=== PATIENT | female | born 1990 | race American Indian/Alaskan Native ===

== ENCOUNTER 2017-08-10 01:39 | Emergency (ER) | payer OTHER ==
[2017-08-10 03:11] LABS: HCG,QUALITATIVE URINE NEGATIVE (NEGATIVE)
[2017-08-10 03:13] LABS: SQUAMOUS EPITHIAL 5 /hpf (0-5); URINE BACTERIA OCC (<OCC); URINE BILIRUBIN NEGATIVE (NEGATIVE); URINE BLOOD NEGATIVE (NEGATIVE); URINE CLARITY Hazy (Clear); URINE COLOR Yellow (YELLOW); URINE GLUCOSE (UA) NORMAL (Normal); URINE LEUKOCYTE ESTERASE TRACE Leu/uL (Negative); URINE NITRATE POSITIVE (NEGATIVE); URINE PROTEIN NEGATIVE (NEGATIVE)
[2017-08-10 03:23] VITALS: BP 107/66; PULSE 61; RESP 18; TEMP 98.3; O2SAT 100
--- NOTE | 2017-08-10 03:27 | C.PDOC ---
History Of Present Illness 26 year old female presents to the ED c/o lower abdominal pain for a week. Patient states she has suprapubic pain, right middle finger pain and swelling. Patient states she has PMHx of UTIs and has not been following up with treatments for it. Patient denies fever, chills, nausea, vomit, diarrhea, back pain. Time Seen by Provider: 08/10/17 02:16 Chief Complaint (Nursing): Female Genitourinary History Per: Patient History/Exam Limitations: no limitations Onset/Duration Of Symptoms: Days Current Symptoms Are (Timing): Still Present Quality Of Discomfort: "Pain" Associated Symptoms: Urinary Symptoms Alleviating Factors: None Recent travel outside of the [place]: No Additional History Per: Patient Abnormal Vaginal Bleeding: No Past Medical History Reviewed: Historical Data, Nursing Documentation, Vital Signs Vital Signs: Last Vital Signs Temp 98.3 F 08/10/17 03:22 Pulse 61 08/10/17 03:22 Resp 18 08/10/17 03:22 BP 107/66 08/10/17 03:22 Pulse Ox 100 08/10/17 04:14 - Medical History PMH: No Chronic Diseases Surgical History: No Surg Hx Family History: States: Unknown Family Hx - Social History Hx Alcohol Use: No Hx Substance Use: No Review Of Systems Constitutional: Negative for: Fever, Chills Cardiovascular: Negative for: Chest Pain, Palpitations Respiratory: Negative for: Cough, Shortness of Breath Gastrointestinal: Positive for: Abdominal Pain. Negative for: Nausea, Vomiting , Diarrhea Musculoskeletal: Positive for: Hand Pain Skin: Negative for: Rash Neurological: Negative for: Weakness, Numbness, Headache Physical Exam - Physical Exam Appears: Non-toxic, No Acute Distress Skin: Normal Color, Warm, Dry Head: Atraumatic, Normacephalic Nose: No Discharge, No Deformity Oral Mucosa: Moist Neck: Normal ROM, Supple Chest: Symmetrical Cardiovascular: Rhythm Regular, No Murmur Respiratory: Normal Breath Sounds, No Rales, No Rhonchi, No Wheezing Gastrointestinal/Abdominal: Soft, No Tenderness, No Guarding, No Rebound Back: No CVA Tenderness Extremity: Normal ROM, Tenderness (minimal tenderness, right middle finger base of 3rd nailbed, no palpable fluctuance, no discoloration), Capillary Refill (< 2 seconds), No Swelling Pulses: Left Radial: Normal, Right Radial: Normal Neurological/Psych: Oriented x3, Normal Speech, Normal Cognition Gait: Steady ED Course And Treatment O2 Sat by Pulse Oximetry: 100 (On RA) Pulse Ox Interpretation: Normal Progress Note: Plan: -Keflex 500 mg PO. -UA. Patient has a UTI, patient was advised to follow up in the clinic for further management. Patient was given antibiotics PO for both the paronychia and UTI. Reassessment Condition: Improved Disposition Counseled Patient/Family Regarding: Diagnosis, Need For Followup, Rx Given - Disposition Referrals: [facility] [Outside] Disposition: HOME/ ROUTINE Disposition Time: 03:23 Condition: STABLE Additional Instructions: Increase PO fluids soak finger in warm water Follow up in medical clinic on friday Return to ER if worse Prescriptions: Cephalexin [cephalexin] 500 mg PO QID #28 cap Instructions: Urinary Tract Infection in Women (ED) Forms: [employer] (Romanian) - Clinical Impression Clinical Impression: Urinary tract infection, Paronychia of right middle finger - PA / PHYSICAL SCIENCE AIDE / Resident Statement MD/DO has reviewed & agrees with the documentation as recorded. - Scribe Statement The provider has reviewed the documentation as recorded by the Scribe Shahid Fallon All medical record entries made by the Scribe were at my direction and personally dictated by me. I have reviewed the chart and agree that the record accurately reflects my personal performance of the history, physical exam, medical decision making, and the department course for this patient. I have also personally directed, reviewed, and agree with the discharge instructions and disposition.
== END 2017-08-10 03:44 | disposition home or self-care (01) ==
LOC: C.ER 01:39
DX: N39.0 Urinary tract infection, site not specified (principal); L03.011 Cellulitis of right finger